=== PATIENT | male | born 1945 | race Caucasian/White ===

== ENCOUNTER 2022-06-18 06:56 | Inpatient (IN) | payer MEDICARE, BC ==
[2022-06-18] MEDS ORDERED: Dexamethasone 20 MG/5 ML VIAL ONE (08:00)
[2022-06-18] MEDS ORDERED: PROPOFOL 200 MG/20 ML VIAL ONE (08:00)
[2022-06-18] MEDS ORDERED: Ondansetron PF 4 MG/2 ML Vial ONE (08:00)
[2022-06-18] MEDS ORDERED: Rocuronium Bromide 10 MG/ML (10ML VIAL) ONE (08:00)
[2022-06-18] MEDS ORDERED: Protamine Sulfate 50 MG/5 ML VIAL ONE (08:23)
[2022-06-18] MEDS ORDERED: Heparin 25,000 units/D5W 500 ML ONE (08:23)
[2022-06-18] MEDS ORDERED: Heparin 10,000 UNITS/ 10 ML VIAL ONE (08:23)
[2022-06-18] MEDS ORDERED: Dehydrated Alcohol 99% 5 ML VIAL ONE (08:30)
[2022-06-18] MEDS ORDERED: fentaNYL 50 mcg/mL 1 mL Vial ONE ×2 (09:13→12:09)
[2022-06-18] MEDS ORDERED: Midazolam HCl 2 mg/2 ml Vial ONE (09:13)
[2022-06-18] MEDS ORDERED: Iopamidol 370 76% 100 ML VIAL ONE (15:20)
[2022-06-18] MEDS ORDERED: Acetaminophen 500 MG TAB PO PRN (16:17)
[2022-06-18] MEDS: metFORMIN 500 MG TAB PO SCH (18:40)
[2022-06-18 18:46] VITALS: BMI 31.9
[2022-06-18] MEDS: Icosapent Ethyl 1 GM CAPSULE PO SCH (18:52)
[2022-06-18] MEDS ORDERED: Rosuvastatin 10 MG TAB PO SCH (21:00)
[2022-06-18] MEDS: Apixaban 5 MG TAB PO SCH (21:09)
[2022-06-18] MEDS: Carvedilol 6.25 MG TAB PO SCH (21:14)
[2022-06-18 21:15] VITALS: BP 116/61
[2022-06-19 07:26] VITALS: TEMP 98.8
[2022-06-19] MEDS: metFORMIN 500 MG TAB PO SCH (07:54)
[2022-06-19] MEDS: Icosapent Ethyl 1 GM CAPSULE PO SCH (07:54)
[2022-06-19] MEDS: Carvedilol 6.25 MG TAB PO SCH (07:55)
[2022-06-19] MEDS: Apixaban 5 MG TAB PO SCH (07:55)
[2022-06-19] MEDS ORDERED: Losartan 25 MG TAB PO SCH (09:00)
== END 2022-06-19 08:46 | disposition home or self-care (01) | DRG 274 ==
LOC: SDC 06:56 → IMCU/EMU 17:50
PROVIDERS: ADMIT Internal Medicine Cardiovascular Disease; ATTEND Internal Medicine Cardiovascular Disease
PROC: B24BZZ4 Ultrasonography of Heart with Aorta, Transesophageal (ICD-10-PCS; principal; 2022-06-18)
PROC: 02583ZZ Destruction of Conduction Mechanism, Percutaneous Approach (ICD-10-PCS; 2022-06-18)
PROC: 4A023FZ Measurement of Cardiac Rhythm, Percutaneous Approach (ICD-10-PCS; 2022-06-18)
PROC: 4A0234Z Measurement of Cardiac Electrical Activity, Percutaneous Approach (ICD-10-PCS; 2022-06-18)
PROC: 02K83ZZ Map Conduction Mechanism, Percutaneous Approach (ICD-10-PCS; 2022-06-18)
DX: I48.19 Other persistent atrial fibrillation (principal); I49.5 Sick sinus syndrome; Z79.84 Long term (current) use of oral hypoglycemic drugs; Z79.01 Long term (current) use of anticoagulants; Z79.899 Other long term (current) drug therapy
CPT/HCPCS: 36416; 93005; 93010; 93312; 93656; 93657; C1725; C1732; C1759; C1760; C1769; C1887; C1894; C2630; J1100; J1644; J2250; J2405; J2704; J2720; J3010; Q9967